=== PATIENT | male | born 2000 | race Two or more races ===

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

== ENCOUNTER 2021-07-15 11:31 | Emergency (ER) | payer MEDICAID ==
--- NOTE | 2021-07-15 11:49 | EDM.PDOC ---
ED HPI GENERAL MEDICAL PROBLEM - General Chief Complaint: ENT Problem Stated Complaint: UPPER L SIDE TOOTH PAIN Time Seen by Provider: 07/15/21 11:49 Source of Information: Reports: Patient History Limitations: Reports: No Limitations - History of Present Illness INITIAL COMMENTS - FREE TEXT/NARRATIVE: pt has pain in left upper molar area. He is very uncomfortable. He has had pain since fri. Onset: Gradual Duration: Day(s): Location: Reports: Face Associated Symptoms: Reports: No Other Symptoms Left Upper Pain Score (Numeric/FACES): 10 - Related Data Allergies Allergy/AdvReac Type Severity Reaction Status Date / Time No Known Allergies Allergy Verified 06/17/19 02:35 Home Meds: Home Meds NK [No Known Home Meds] 05/06/19 [History] Past Medical History - Past Health History Medical/Surgical History: Denies Medical/Surgical History Social & Family History - Caffeine Use Caffeine Use: Reports: Coffee, Energy Drinks, Soda, Tea ED ROS ENT - Review of Systems Review Of Systems: See Below Constitutional: Reports: No Symptoms HEENT: Reports: Dental Pain Respiratory: Reports: No Symptoms Cardiovascular: Reports: No Symptoms Endocrine: Reports: No Symptoms GI/Abdominal: Reports: No Symptoms ED EXAM, ENT - Physical Exam Exam: See Below Text/Narrative:: pt arrived with painin the left upper molar. He has a broken tooth in the area. Exam Limited By: No Limitations General Appearance: Alert, Anxious, Moderate Distress Ears: Normal TMs Nose: Normal Inspection Mouth/Throat: Dental Pain, Dental Tenderness, Other (pt has a carrious broken tooth. ) Head: Atraumatic Neck: Normal Inspection Respiratory/Chest: No Respiratory Distress Cardiovascular: Regular Rate, Rhythm Course - Vital Signs Last Recorded V/S: Last Vital Signs Temp 36.5 C 07/15/21 11:51 Pulse 60 07/15/21 11:51 Resp 20 07/15/21 11:51 BP 139/56 L 07/15/21 11:51 Pulse Ox 100 07/15/21 11:51 - Orders/Labs/Meds Orders: Active Orders 24 hr Category Date Time Status Sinus Less 3V [CR] Stat Exams 07/15/21 11:59 Taken Meds: Medications Discontinued Medications Generic Name Dose Route Start Last Admin Trade Name Freq PRN Reason Stop Dose Admin Hydrocodone Bitart/Acetaminophen 1 tab 07/15/21 11:56 08/15/21 12:06 Acetaminophen/Hydrocodone 325-5 Mg Tab PO 07/15/21 11:57 1 tab ONETIME ONE Administration Ketorolac Tromethamine 60 mg 07/15/21 11:56 07/15/21 12:01 Ketorolac 30 Mg/Ml Sdv IM 07/15/21 11:57 60 mg ONETIME ONE Administration - Re-Assessments/Exams Free Text/Narrative Re-Assessment/Exam: 07/15/21 12:40 pt had a sinus view-- dickerson which did not show changes in the sinus. He was given torodol 60 mg and norco 5/325 He will have a dental referal tomorrow. Departure - Departure Time of Disposition: 12:31 Disposition: Home, Self-Care 01 Condition: Fair Clinical Impression: Pain, dental - Discharge Information Instructions: Tooth Injuries, [id number] Referrals: PCP,None [Primary Care Provider] - Forms: ED Department Discharge Care Plan Goals: dental pain from brokn tooth. amoxicillin 500mg tid, norco 5/325 q6h prn for pain # 4 dental refweral for tomorrow to [facility] dental. Sepsis Event Note (ED) - Focused Exam Vital Signs: Vital Signs Temp Pulse Resp BP Pulse Ox 07/15/21 11:51 36.5 C 60 20 139/56 L 100 07/15/21 11:47 36.5 C 60 20 139/56 L 100 - My Orders Last 24 Hours: My Active Orders 07/15/21 11:59 Sinus Less 3V [CR] Stat - Assessment/Plan Last 24 Hours: My Active Orders 07/15/21 11:59 Sinus Less 3V [CR] Stat
[2021-07-15] MEDS ORDERED: Acetaminophen/HYDROcodone 325-5 MG Tab PO ONE (11:56)
[2021-07-15] MEDS ORDERED: Ketorolac 30 MG/ML SDV IM ONE (11:56)
--- NOTE | 2021-07-16 11:18 | CR ---
Sinus Less 3V CLINICAL HISTORY: Facial pain, infected tooth FINDINGS: The paranasal sinuses are clear. The visualized airway is patent. There is leftward deviation the nasal septum. There is a partially impacted wisdom tooth in the left mandible. IMPRESSION: No evidence of sinusitis Impacted mandibular wisdom tooth in the left
== END 2021-07-15 12:43 | disposition home or self-care (01) ==
LOC: JP.ED 11:31
DX: K03.81 Cracked tooth (principal); K02.9 Dental caries, unspecified
CPT/HCPCS: 96372; 99283-25; A9270-GY; J1885

== ENCOUNTER 2021-10-21 16:54 | Emergency (ER) | payer MEDICAID ==
[2021-10-21] MEDS ORDERED: Amoxicillin/Clavulanate K 875-125 MG Tab PO ONE (17:49)
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
== END 2021-10-21 18:31 ==
LOC: JP.ED 16:54
DX: S02.2XXA Fracture of nasal bones, initial encounter for closed fracture (principal); M79.645 Pain in left finger(s); Y04.2XXA Assault by strike against or bumped into by another person, initial encounter
CPT/HCPCS: 70450; 70486; 73140; 99285; A9270